=== PATIENT | female | born 2000 | race Caucasian/White ===

== ENCOUNTER 2020-06-18 11:49 | Emergency (ER) | payer OTHER ==
[~2020-06-18] VITALS: Ht 160 cm; Wt 68.0 kg
[2020-06-18] MEDS ORDERED: PYRI-6 PO (12:14)
[2020-06-18] MEDS ORDERED: FERR325T28 PO (12:14)
[2020-06-18] MEDS ORDERED: ONDA4TAB5 PO (12:14)
[2020-06-18] MEDS ORDERED: PREN1TAB81 PO (12:14)
[2020-06-18] MEDS ORDERED: ONDANSETRON 4 MG/2 ML VIAL IV ONE (12:15)
[2020-06-18] MEDS ORDERED: IV NORMAL SALINE 1000 ML BAG IV ONE (12:15)
[2020-06-18 12:31] LABS: *BILIRUBIN,URIN NEGATIVE (NEGATIVE); *BLOOD, URINE NEGATIVE (NEGATIVE); *CLARITY,URINE SLIGHTLY CLOUDY (CLEAR); *COLOR,URINE YELLOW (YELLOW); *KETONES,URINE TRACE (NEGATIVE); *UROBILINOGEN,URINE 0.2 E.U./dl (NORMAL); LEUKOCYTE ESTERASE ,URINE 1+ (NEGATIVE); NITRITE, URINE NEGATIVE (NEGATIVE); UGLUCOSE NEGATIVE (NEGATIVE)
[2020-06-18] MEDS ORDERED: ONDANSETRON 4 MG/2 ML VIAL ONE (12:33)
[2020-06-18 12:35] LABS: BASOPHILS % (AUTO) 0.3 % (0.0-2.0); EOSINOPHILS % (AUTO) 0.4 % (0.0-7.0); HEMATOCRIT 28.6 % (31.2-41.9); HEMOGLOBIN 9.3 g/dL (10.9-14.3); LYMPHOCYTES # (AUTO) 1.4 K/uL (20.0-40.0); LYMPHOCYTES % (AUTO) 13.7 % (20.5-51.5); MEAN CORPUSCULAR HEMOGLOBIN 20.6 uug (24.7-32.8); MEAN CORPUSCULAR HGB CONC 33 g/dL (32.3-35.6); MEAN CORPUSCULAR VOLUME 63.3 fL (75.5-95.3); MONOCYTES # (AUTO) 0.5 K/uL (2.0-10.0); MONOCYTES % (AUTO) 4.9 % (0.0-11.0); NEUTROPHILS # (AUTO) 8.5 K/uL (1.8-8.9); NEUTROPHILS % (AUTO) 80.7 % (38.5-71.5); PLATELET COUNT (AUTO) 271 K/uL (179-408); RED BLOOD CELL COUNT(AUTO) 4.52 MIL/uL (3.63-4.92); WHITE BLOOD COUNT (AUTO) 10.6 K/uL (3.8-11.8)
[2020-06-18 12:46] LABS: CARBON DIOXIDE 21 mmol/L (21-32); CHLORIDE 102 mmol/L (98-107); CREATININE 0.5 mg/dL (0.6-1.3); GLUCOSE 101 mg/dL (74-106); POTASSIUM 3.7 mmol/L (3.5-5.1); UREA NITROGEN, BLOOD 5 mg/dL (7-18)
[2020-06-18 12:52] LABS: ALANINE AMINOTRANSFERASE 14 U/L (14-59); ALKALINE PHOSPHATASE 40 U/L (50-136); ASPARTATE AMINOTRANSFERASE 18 U/L (15-37); TOTAL PROTEIN, SERUM 6.3 g/dL (6.4-8.2)
[2020-06-18 13:03] LABS: BILIRUBIN,TOTAL 0.9 mg/dL (0.2-1.0)
[2020-06-18 13:07] LABS: SQUAMOUS EPITHELIAL CELL,UR MANY /HPF (NONE SEEN)
[2020-06-18 13:08] LABS: MUCUS,URINE FEW /LPF (0-FEW); WBC,URINE 0-3 /HPF (0-3)
[2020-06-18 13:09] LABS: BACTERIA,URINE FEW /HPF (NONE SEEN); RBC,URINE 0-3 /HPF (0-3)
[2020-06-18] MEDS ORDERED: CEPH500C2 PO (13:50)
--- NOTE | 2020-06-18 14:04 | NUR ---
Patient discharged to home in stable condition. Written and verbal after care instructions given. Patient verbalizes understanding of instructions. Stressed follow up or return to ER for worsening s/s.pt walks in steady gait. pt says feels better. pt deneis n/v at this time.
[2020-06-18 14:05] VITALS: BP 119/59
== END 2020-06-18 14:08 | disposition home or self-care (01) ==
LOC: ER 11:52
DX: O23.42 Unspecified infection of urinary tract in pregnancy, second trimester (principal); Z3A.14 14 weeks gestation of pregnancy; O99.012 Anemia complicating pregnancy, second trimester; R11.2 Nausea with vomiting, unspecified; Z20.822 Contact with and (suspected) exposure to COVID-19; Z87.891 Personal history of nicotine dependence; O99.412 Diseases of the circulatory system complicating pregnancy, second trimester
CPT/HCPCS: 36415; 76775; 76815; 76819; 80053; 81001; 84702; 85025; 86850; 86900; 86901; 87086; 87426; 96361; 96374; 99285; J2405; A4663